=== PATIENT | male | born 1965 | race Caucasian/White ===

== ENCOUNTER 2020-05-07 12:31 | Emergency (ER) | payer BC ==
[~2020-05-07] VITALS: Ht 177.8 cm; Wt 78.9 kg
[~2020-05-07 12:31] MED LIST: ADULT LOW DOSE81 MG PO; ALBUTEROL INH IH; AMOXICILLIN; EPIPEN 2-P0.3 MG/0.3 IM; NEXIUM40 MG PO; PREDNISONE; PREDNISONE OR; PRILOSEC OTC20 MG PO; VENTOLIN HFA 1818 GM INH; VICODIN 5-5001 EACH PO
[2020-05-07] MEDS ORDERED: LIPITOR40 MG PO (12:49)
[2020-05-07] MEDS ORDERED: HYDROCHLOROTH12.5 M1 PO (12:49)
[2020-05-07] MEDS ORDERED: COZAAR 25 MG TA25 M2 PO (12:49)
[2020-05-07 13:38] LABS: ABSOLUTE LYMPHOCYTES 1.3 thou/uL (0.8-5.3); ABSOLUTE MONOCYTES 0.7 thou/uL (0.0-1.2); ABSOLUTE NEUTROPHILS 5.7 thou/uL (1.6-8.1); BASOPHILS 0.4 %; EOSINOPHILS 0.6 %; HEMATOCRIT 52.6 % (42.0-52.0); HEMOGLOBIN 18.6 gm/dL (14.0-18.0); LYMPHOCYTES 16.7 %; MCH 31.3 pg (26.0-34.0); MCHC 35.3 g/dL (28.0-37.0); MCV 88.8 fL (80.0-100.0); MONOCYTES 8.6 %; MPV 9.1 fl. (7.2-11.1); NUCLEATED RBCS 0 /100WBC; PLATELET COUNT* 242 thou/uL (150-400); POLYS 73.7 %; RBC 5.92 mil/uL (4.50-6.00); RDW-CV 13.5 % (10.5-14.5); WBC 7.7 thou/uL (4.0-11.0)
[2020-05-07 13:44] LABS: CALCIUM 9.5 mg/dL (8.5-10.1); CREATININE 1.3 mg/dL (0.6-1.3); POTASSIUM 3.6 mmol/L (3.5-5.1)
[2020-05-07 13:44] LABS: URINE BILIRUBIN NEGATIVE (Negative); URINE BLOOD NEGATIVE (Negative); URINE CLARITY CLEAR; URINE COLOR YELLOW; URINE GLUCOSE-RANDOM NEGATIVE (Negative); URINE KETONES NEGATIVE (Negative); URINE LEUKOCYTES-REFLEX NEGATIVE (Negative); URINE NITRITE-REFLEX NEGATIVE (Negative); URINE PROTEIN NEGATIVE (Negative); URINE SPECIFIC GRAVITY <= 1.005 (1.005-1.030); URINE UROBILINOGEN 0.2 E.U./dl (0.2-1.0)
[2020-05-07 13:48] LABS: ALBUMIN 4.4 g/dL (3.4-5.0); TOTAL BILIRUBIN 0.6 mg/dL (<0.1-1.0); TOTAL PROTEIN 8.4 g/dL (6.4-8.2)
[2020-05-07] MEDS ORDERED: TRANSDERM-SCOP1 EACH TRANSDERM (14:59)
[2020-05-07 16:33] VITALS: BP 138/83
--- NOTE | 2020-05-08 10:41 | EKG ---
[place] [address] ELECTROCARDIOGRAM REPORT Name: FRENCH GARCIA Room: [facility]#: [id number] Admission: 05/07/20 Attend Phys: Discharge: 05/07/20 Date of : 65 Date of Service: 05/07/20 1346 Report #: [id number] THIS REPORT FOR: //name// [facility] ED Test Date: 2020-05-07 Test Time: 13:46:11 Pat Name: FRENCH GARCIA Department: Room: Gender: B[employer] Operator: [facility] : 1965 Requested By: Jody Potts Order Number: [id number] MD: Jorge L Bocanegra Measurements Intervals [place] Rate: 71 P: 32 FL: 177 QRS: -10 QRSD: 91 T: 32 QT: 384 QTc: 418 Interpretive Statements Sinus rhythm Compared to ECG 02/03/2010 07:51:47 Sinus bradycardia no longer present Electronically Signed On 05-08-2020 10:41:08 CDT by Jorge L Bocanegra [email or web address] <ELECTRONICALLY SIGNED> By: Jorge L Bocanegra MD, [facility] 05/08/20 1041 1346 134 Jorge L Bocanegra MD, [facility] /EPI
== END 2020-05-07 16:34 | disposition home or self-care (01) ==
LOC: M.ERS 12:31
PROVIDERS: Nurse Practitioner Family
DX: H81.12 Benign paroxysmal vertigo, left ear (principal); R11.0 Nausea; K21.9 Gastro-esophageal reflux disease without esophagitis; E78.5 Hyperlipidemia, unspecified; I10 Essential (primary) hypertension; E78.00 Pure hypercholesterolemia, unspecified; F12.10 Cannabis abuse, uncomplicated; Z79.899 Other long term (current) drug therapy